=== PATIENT | male | born 1955 | race Caucasian/White ===

== ENCOUNTER 2020-08-30 11:53 | Emergency (ER) | payer MEDICARE, SELFPAY ==
--- NOTE | 2020-08-30 12:00 | DI.RAD_ITS ---
EXAM: XR CHEST 2V PA LATERAL CLINICAL HISTORY: High blood pressure. TECHNIQUE: 2D digital imaging was performed. COMPARISON: No exams were available for comparison FINDINGS: Heart size is normal. The mediastinum is not widened. Lungs are clear. No infiltrates nor pleural effusions. Hyperinflation noted. IMPRESSION: Hyperinflation. No acute pulmonary findings. DATA REPOSITORY: RADIATION DOSE DELIVERED:
--- NOTE | 2020-08-30 12:00 | RT.EKG_ITS ---
APPROVED REPORT Exam: Resting ECG Patient Location: E HR:64 bpm ECG Measurements Heart Rate 64 AXIS HI 153 P 81 QRSd 96 QRS 77 QT 459 T 30 QTc 452 Conclusion Sinus bradycardia..No st elevation. Nonspecific st changes inferior
[2020-08-30 12:06] VITALS: BP 215/90; PULSE 67; RESP 20; TEMP 37; O2SAT 98
--- NOTE | 2020-08-30 12:09 | W.ED.GENAD ---
Discharge Plan Disposition Patient Disposition: HOME Condition: Stable Discharge Details Clinical Impression: Temporary high blood pressure Primary Care Provider: Unknown,Unknown ED Provider: Katherine Jarrett Home Meds and New Rx's Prescriptions: New lisinopril 10 mg tablet 10 mg PO DAILY Qty: 30 RF: 0 Discharge Instructions Instructions: Hypertension (ED) Additional Instructions: Follow up with primary care provider in 3-5 days. Return to ED sooner if any worsening or concerns. Increase oral fluids. Take blood pressure medication once daily in the morning as directed. Check your blood pressure at same time each day if possible. Return with any chest pain, blurry vision, headache, numbness tingling or any concerns. Keep your primary care appointment as previously scheduled this week. Discharge Data Discharge Date/Time-TO BE ENTERED AT DEPARTURE: 08/30/20 14:45 Medical Decision Making 65-year-old male presents to the ED with chief complaint of high blood pressure which he noticed yesterday. He has not seen a doctor in approximately 20 years has no known past medical history. He does report intermittent left arm tingling, no numbness positive [id number]. Patient denies any headache, blurry vision, chest pain or shortness of breath at this time. He denies any lower extremity swelling. Patient is a daily smoker he does endorse marijuana. He denies alcohol use. 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 No complaints of urinary involvement. At this time work-up ordered including CBC, CMP, serial troponins chest x-ray EKG was reviewed by Dr. Estela RODRIGUEZ ER attending, questionable ST depression in 2 3 aVF inferior leads. No old EKG available for review. Blood pressure is now decreased to 155/89 patient remains alert and oriented. We will continue to monitor labs are largely within normal limits. Initial troponin is negative. EXAM: XR CHEST 2V PA LATERAL CLINICAL HISTORY: High blood pressure. TECHNIQUE: 2D digital imaging was performed. COMPARISON: No exams were available for comparison FINDINGS: Heart size is normal. The mediastinum is not widened. Lungs are clear. No infiltrates nor pleural effusions. Hyperinflation noted. IMPRESSION: Hyperinflation. No acute pulmonary findings. Will give Lisinopril 10 mg here, and will give prescription for low dose Lisinopril, will close follow up. Patient states that he has an upcoming appointment this week with Monse Givens. I did attempt to call his son Desmond no answer. Patient's blood pressure remained stable throughout the remainder of his stay at this time his blood pressure is 177/79 which is still elevated but improved. He continues to have no chest pain no headache or any other complaints. HPI General Mode of arrival: ambulatory. Date/Time Provider Initiated Documentation: 08/30/20 11:54. Limitations to Documentation: no limitations. Information obtained by: patient. HPI Narrative: 65-year-old male presents to the ED with chief complaint of high blood pressure which he noticed yesterday. He has not seen a doctor in approximately 20 years has no known past medical history. He does report intermittent left arm tingling, no numbness positive [id number]. Patient denies any headache, blurry vision, chest pain or shortness of breath at this time. He denies any lower extremity swelling. Patient is a daily smoker he does endorse marijuana. He denies alcohol use. 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 No complaints of urinary involvement. Related Data Home Medications Medication Instructions Recorded Confirmed lisinopril 10 mg PO DAILY #30 tab 08/30/20 Previous Rx's Medication Instructions Recorded lisinopril 10 mg PO DAILY #30 tab 08/30/20 Allergies Allergy/AdvReac Type Severity Reaction Status Date / Time No Known Allergies Allergy Unverified 08/30/20 13:03 General Stated Complaint: Chest/Rib TRINA: 3 Review of Systems Narrative: Constitutional: Negative for weight loss, alert and oriented, well groomed, normal body habitus, appears comfortable. HEENT: Denies trauma, headaches, blurry vision, nasal discharge, sore throat, trouble swallowing. Chest: Denies chest pain, palpitations, irregular rhythm, Respiratory: Denies Shortness of breath, cough, hemoptysis. GI: Denies abdominal pain, nausea, vomiting, diarrhea, constipation. : Denies dysuria, hematuria, flank pain, rectal bleeding. Neuro: Denies dizziness, blurry vision, weakness, syncope, headache or facial numbness. Hematologic: Denies easy bruising, intolerance to heat or cold, hair loss. [facility] Social History Smoking/Tobacco Use Status: Current every day Tobacco Type: cigarettes Smoking risk assessment performed?: Yes Alcohol Intake: former Substance use type: marijuana Do you feel safe at home: Yes Do you feel safe in your relationship?: Yes Exam Narrative Exam Narrative: Constitutional: Alert and oriented x3. Appears stated age. Normal body habitus. Head: Normocephalic, no trauma. Eyes: Pupils PERRLA, Red reflex noted, EOM's intact. Eyelids symmetrical without lesions, discharge, or swelling. ENT: Bilateral TM's WNL, External ear normal to inspection, no mastoid TTP, swelling, or erythema, Nasal turbinates WNL, no nasal discharge. Normal dentition, Posterior pharynx WNL, no exudate. Chest: RRR, Normal S1, S2, distal pulses intact. Patient is hypertensive upon initial exam at 215/90. Resp: Lungs clear to auscultation bilaterally, no wheezes, rales, or rhonchi. Musculoskeletal: Normal gait, 5/5 strength to all four extremities. Skin: No suspicious rashes or lesions. Capillary refill less than 2 sec. Neurologic: Cranial nerves II-XII intact. Alert and oriented x 3. DTR's intact. Hematologic/Lymphatic: No ecchymosis, no lymphadenopathy. Course Vital Signs Vital signs: Vital Signs Temperature 37 C 08/30/20 12:06 Pulse 67 08/30/20 12:06 Respiratory Rate 20 08/30/20 12:06 Blood Pressure 215/90 H 08/30/20 12:06 Pulse Oximetry 98 08/30/20 12:06 Temperature 37 C 08/30/20 12:06 Pulse 67 08/30/20 12:06 Respiratory Rate 20 08/30/20 12:06 Blood Pressure 215/90 H 08/30/20 12:06 Pulse Oximetry 98 08/30/20 12:06 Oxygen Delivery Method Room Air 08/30/20 12:06 Oxygen Flow Rate 0 08/30/20 12:06 Pain Level 0 08/30/20 12:06
[2020-08-30 12:36] LABS: Abs Immature Grans 0.01 10^3/uL (0.0-0.06); Absolute Basophil Count 0.07 10^3/uL (0.0-0.2); Absolute Eosinophil Count 0.06 10^3/uL (0.0-0.7); Absolute Lymphocyte Count 2.29 10^3/uL (1.2-3.4); Absolute Monocyte Count 0.49 10^3/uL (0.1-0.8); Absolute Neutrophil Count 3.25 10^3/uL (1.2-6.7); Basophils % 1.1; HCT 44.7 % (40.0-50.0); HGB 15.2 g/dL (13.5-17.5); Immature Grans % 0.2; Lymphocytes % 37.1; MCH 30.2 pg (27.0-33.0); MCV 88.9 fL (80-95); MPV 12.5 fL (8.0-11.0); Monocytes % 7.9; Neutrophils % 52.7; Nucleated RBC 0 %; Platelet Count 214 10^3/uL (130-400); RBC 5.03 10^6/uL (4.36-5.78); RDW 12.5 % (11.8-14.1); WBC 6.17 10^3/uL (4.4-10.8)
[2020-08-30 12:53] LABS: ALT 141 U/L (16-63); AST 86 U/L (15-37); Albumin 3.9 g/dL (3.4-5.0); Alkaline Phosphatase 89 U/L (46-116); Anion Gap 8.2 mmol/L (3-11); BUN 15 mg/dL (7-18); Bilirubin, Total 0.6 mg/dL (0.2-1.0); CO2 26.8 mmol/L (21.0-32.0); CREATININE 0.86 mg/dL (0.70-1.30); Calcium 9.1 mg/dL (8.5-10.1); Chloride 103 mmol/L (98-107); Glucose 108 mg/dL (74-106); Magnesium 1.8 mg/dL (1.8-2.4); Potassium 3.8 mmol/L (3.5-5.1); Sodium 138 mmol/L (136-145); Total Protein 9.5 g/dL (6.4-8.2); Troponin I < 0.05 ng/mL (<0.06)
[2020-08-30 13:02] VITALS: BP 155/89; PULSE 66; RESP 20; O2SAT 97
[2020-08-30 13:18] LABS: Bilirubin Negative (Negative); Blood Negative (Negative); Clarity Clear (Clear); Glucose Negative (Negative); Ketones Negative (Negative); Leukocyte Esterase Negative (Negative); Nitrite Negative (Negative); Specific Gravity >= 1.030 (1.005-1.025); Urobilinogen 0.2 EU/dL (Up TO 0.2); pH 5.5 (5-8)
[2020-08-30 13:47] VITALS: BP 161/91; PULSE 65; RESP 20; O2SAT 97
[2020-08-30] MEDS: Lisinopril 10 MG TAB PO (13:51)
== END 2020-08-30 14:45 | disposition home or self-care (01) ==
PROVIDERS: Emergency Provider Registered Nurse Emergency
DX: R03.0 Elevated blood-pressure reading, without diagnosis of hypertension (principal)
CPT/HCPCS: 36415; 80053; 93005; 99285; 71046; 81003; 83735; 84484; 85025; 93010; 99284

== ENCOUNTER 2020-10-24 01:50 | Outpatient (CLI) | payer MEDICARE, SELFPAY ==
--- NOTE | 2020-10-24 06:30 | DI.US_ITS ---
EXAM: US AAA SCREENING CLINICAL HISTORY: Male, +Nicotine use,SCREENING FOR AAA,F17.200,Z13.6 COMPARISON: No exams were available for comparison FINDINGS: Abdominal Aorta: Proximal: 2.9 x 2.9 cm Mid: 1.8 x 2.1 cm Distal: 1.7 x 2.5 cm Iliac's: Right: 0.9 x 1.0 cm Left: 0.9 x 0.9 cm Atherosclerosis is present. IMPRESSION: No evidence of abdominal aortic aneurysm. DATA REPOSITORY:
== END 2020-10-24 02:10 ==
PROVIDERS: PCP Nurse Practitioner Adult Health; Visit Provider Nurse Practitioner Adult Health
DX: Z13.6 Encounter for screening for cardiovascular disorders (principal); F17.210 Nicotine dependence, cigarettes, uncomplicated; Z12.12 Encounter for screening for malignant neoplasm of rectum; J43.8 Other emphysema; R91.8 Other nonspecific abnormal finding of lung field
CPT/HCPCS: 71271; 76706

== ENCOUNTER 2020-10-24 01:51 | Outpatient (CLI) | payer MEDICARE, SELFPAY ==
--- NOTE | 2020-10-24 06:30 | DI.CTLCSR_ITS ---
EXAM: CT CHEST LUNG CANCER SCREEN CLINICAL HISTORY: Screening for lung cancer,CURRENT SMOKER, F17.210 TECHNIQUE: Imaging Protocol: Axial computed tomography images with coronal and sagittal reformatted images were created and reviewed COMPARISON: CR XR CHEST 2V PA LATERAL from 08/30/2020 FINDINGS: Tracheobronchial tree: Patent where visualized. Pulmonary parenchyma: No consolidation or dominant measurable mass. Moderate centrilobular pulmonary emphysema is present. Scarring and/or atelectasis is seen in the dependent portions of the lungs. Lung Nodules: None. Mediastinum and Mary: No dominant adenopathy or fluid collection. Pleura: No effusion or pneumothorax. Heart: The heart is not dilated. Coronary artery calcification and/or stents are noted. Very small p ericardial effusion or pericardial thickening is seen. Aorta: Thoracic aorta non-dilated.Atherosclerosis. Upper abdomen: Unremarkable. Soft Tissues: Unremarkable. Bones: Within normal limits. IMPRESSION: 1. No pulmonary nodules. 2. Moderate centrilobular pulmonary emphysema. Lung RADS Cat 1 - Negative: No nodules and definitely benign nodules Lung-RADS 1.0 CATEGORIES: Category 0 - Prior chest CT exam(s) being located for comparison. Category 1 - Annual screening in 12 months. No nodules or definitely benign nodules. Category 2 - Annual screening in 12 months. Benign appearance. Nodules with low likelihood of becomin g active cancer. Category 3 - 6-month follow-up. Probably benign. Short-term follow-up suggested. Nodules with low lik elihood of becoming active cancer. Category 4A - 3-month follow-up and CT/PET if >8 mm in size. Suspicious finding. Findings which requi re additional testing. Category 4B - Findings which require additional testing and tissue sampling. Suspicious finding. Modifier S- Potentially clinically significant finding. (Non lung cancer) RADIATION DOSE DELIVERED: 88.93mGy.cm Total DLP 88.93mGy.cm Total DLP 1.84mGy CTDIvol DATA REPOSITORY: All CT scans at this facility are submitted to the National Radiology Data Registry (NRDR) Dose Index Registry (DIR) with the [employer] (A[employer]). RADIATION OPTIMIZATION: All CT scans at this facility use at least one of these dose optimization te chniques: automated exposure control; mA and/or kV adjustment per patient size (includes targeted exa ms where dose is matched to clinical indication); or iterative reconstruction.
== END 2020-10-24 02:11 ==
PROVIDERS: PCP Nurse Practitioner Adult Health; Visit Provider Nurse Practitioner
DX: Z12.2 Encounter for screening for malignant neoplasm of respiratory organs (principal); F17.210 Nicotine dependence, cigarettes, uncomplicated; J43.8 Other emphysema; R91.8 Other nonspecific abnormal finding of lung field
CPT/HCPCS: 71271

== ENCOUNTER 2022-03-16 09:55 | Outpatient (CLI) | payer MEDICARE, MEDICAID, SELFPAY ==
--- NOTE | 2022-03-16 09:45 | RT.EKG_ITS ---
APPROVED REPORT Exam: Resting ECG Reason for Exam: r/o Atrial Fibrillation Patient Location: O HR:63 bpm ECG Measurements Heart Rate 63 AXIS MT 163 P 79 QRSd 120 QRS 77 QT 468 T -37 QTc 452 Conclusion Sinus bradycardia...rate< 60 Premature atrial contractions
== END 2022-03-16 09:56 | disposition home or self-care (01) ==
LOC: DI.KIM 09:57
PROVIDERS: PCP Nurse Practitioner Adult Health; Visit Provider Nurse Practitioner Adult Health
DX: R94.31 Abnormal electrocardiogram [ECG] [EKG]; R00.1 Bradycardia, unspecified
CPT/HCPCS: 93010

== ENCOUNTER 2022-03-26 01:43 | Outpatient (CLI) | payer MEDICARE, SELFPAY ==
[2022-03-26 09:20] LABS: ALT 134 U/L (16-63); AST 89 U/L (15-37); Albumin 3.5 g/dL (3.4-5.0); Alkaline Phosphatase 76 U/L (46-116); Anion Gap 8.1 mmol/L (3-11); BUN 17 mg/dL (7-18); Bilirubin, Total 0.4 mg/dL (0.2-1.0); CO2 26.9 mmol/L (21.0-32.0); CREATININE 0.9 mg/dL (0.70-1.30); Calcium 8.9 mg/dL (8.5-10.1); Calculated LDL 99 mg/dL (<100); Chloride 105 mmol/L (98-107); Cholesterol 173 mg/dL (<200); Folate 15.1 ng/mL (8.6-20.0); Glucose 110 mg/dL (74-106); HDL Cholesterol 56 mg/dL (40-60); Potassium 3.7 mmol/L (3.5-5.1); Sodium 140 mmol/L (136-145); Total Protein 8.5 g/dL (6.4-8.2); Triglyceride 93 mg/dL (<150); Vitamin B12 536 pg/mL (193-986)
== END 2022-03-26 01:44 | disposition home or self-care (01) ==
LOC: LBO 01:43
PROVIDERS: PCP Nurse Practitioner Adult Health; Visit Provider Nurse Practitioner Adult Health
DX: I10 Essential (primary) hypertension (principal); F17.210 Nicotine dependence, cigarettes, uncomplicated; R74.01 Elevation of levels of liver transaminase levels; Z13.220 Encounter for screening for lipoid disorders; Z79.899 Other long term (current) drug therapy
CPT/HCPCS: 36415; 80053; 80061; 82607; 82746

== ENCOUNTER → 2022-04-01 01:19 | Outpatient (CLI) | payer MEDICARE, SELFPAY ==
--- NOTE | 2022-04-01 07:00 | DI.CTLCSR_ITS ---
Exam(s) CT CHEST LUNG CANCER SCREEN EXAM: CT CHEST LUNG CANCER SCREEN CLINICAL HISTORY: Screening for lung cancer,current smoker,f17.210 TECHNIQUE: CT examination of the chest was performed utilizing low-dose lung cancer screening protoc ol. COMPARISON: CT CT CHEST LUNG CANCER SCREEN from 10/24/2020 FINDINGS: Images obtained through the upper abdomen show unremarkable appearance of visualized portions of the liver and spleen. Visualized portions of the pancreas, adrenals, and kidneys are unremarkable. Note is made of coronary artery calcification. There is no mediastinal or hilar adenopathy. Mediastinal vascular structures appear intact by noncon trast criteria. Tracheobronchial tree appears intact. No pleural effusion or pleural-based mass. There are moderate to severe central lobular pulmonary emphysematous changes. The lungs are clear with no significant intrapulmonary nodule identified. IMPRESSION: Lung RADS Cat 1 - Negative: No nodules and definitely benign nodules Continue annual screening with LDCT in 12 months. Lung-RADS 1.0 CATEGORIES: Category 0 - Prior chest CT exam(s) being located for comparison. Category 1 - Annual screening in 12 months. No nodules or definitely benign nodules. Category 2 - Annual screening in 12 months. Benign appearance. Nodules with low likelihood of becomin g active cancer. Category 3 - 6-month follow-up. Probably benign. Short-term follow-up suggested. Nodules with low lik elihood of becoming active cancer. Category 4A - 3-month follow-up and CT/PET if >8 mm in size. Suspicious finding. Findings which requi re additional testing. Category 4B - Findings which require additional testing and tissue sampling. Suspicious finding. Category 4X - Category 3 or 4 nodules with additional features or imaging findings that increases the suspicion of malignancy. Modifier S- Potentially clinically significant finding. (Non lung cancer) RADIATION DOSE DELIVERED: 80.81mGy.cm Total DLP 1.84mGy CTDIvol 80.81mGy.cm Total DLP !Error CTDIvol DATA REPOSITORY: All CT scans at this facility are submitted to the National Radiology Data Registry (NRDR) Dose Index Registry (DIR) with the [employer] (ACR). RADIATION OPTIMIZATION: All CT scans at this facility use at least one of these dose optimization te chniques: automated exposure control; mA and/or kV adjustment per patient size (includes targeted exa ms where dose is matched to clinical indication); or iterative reconstruction.
== END ==
PROVIDERS: PCP Nurse Practitioner Adult Health; Visit Provider Nurse Practitioner Adult Health
DX: F17.210 Nicotine dependence, cigarettes, uncomplicated (principal); Z12.2 Encounter for screening for malignant neoplasm of respiratory organs
CPT/HCPCS: 71271

== ENCOUNTER 2023-05-03 10:11 | Outpatient (REF) | payer MEDICARE, MEDICAID, SELFPAY ==
[2023-05-03 22:17] LABS: Anion Gap 10.5 mmol/L (3-11); BUN 20 mg/dL (7-18); CO2 24.5 mmol/L (21.0-32.0); CREATININE 0.9 mg/dL (0.70-1.30); Calcium 9.7 mg/dL (8.5-10.1); Chloride 101 mmol/L (98-107); Estimated GFR 91.88 (mL/min/1.73m2); Glucose 124 mg/dL (74-106); Sodium 136 mmol/L (136-145)
== END 2023-05-03 10:12 | disposition home or self-care (01) ==
LOC: LBO 10:11
PROVIDERS: PCP Nurse Practitioner Adult Health; Visit Provider Nurse Practitioner Adult Health
DX: I10 Essential (primary) hypertension (principal)
CPT/HCPCS: 80048

== ENCOUNTER 2024-10-19 11:46 | Outpatient (REF) | payer MEDICARE, MEDICAID, SELFPAY ==
[2024-10-19 15:34] LABS: ALT 131 U/L (16-63); AST 102 U/L (15-37); Albumin 3.5 g/dL (3.4-5.0); Alkaline Phosphatase 104 U/L (46-116); Anion Gap 5.9 mmol/L (3-11); BUN 12 mg/dL (7-18); Bilirubin, Total 0.5 mg/dL (0.2-1.0); CO2 28.1 mmol/L (21.0-32.0); CREATININE 0.8 mg/dL (0.70-1.30); Calcium 9.3 mg/dL (8.5-10.1); Chloride 105 mmol/L (98-107); Estimated GFR 94.62 (mL/min/1.73m2); Glucose 97 mg/dL (74-106); Potassium 4.4 mmol/L (3.5-5.1); Sodium 139 mmol/L (136-145); Total Protein 8.7 g/dL (6.4-8.2)
== END 2024-10-19 11:47 | disposition home or self-care (01) ==
LOC: LBN 11:46
PROVIDERS: PCP Nurse Practitioner Adult Health; Visit Provider Nurse Practitioner Adult Health
DX: I10 Essential (primary) hypertension (principal); R74.01 Elevation of levels of liver transaminase levels; J43.2 Centrilobular emphysema
CPT/HCPCS: 80053

== ENCOUNTER 2025-04-23 10:28 | Inpatient (IN) | payer MEDICARE, MEDICAID, SELFPAY ==
[2025-04-23] VITALS (16 sets, daily range): BP systolic 133–164; BP diastolic 65–94; PULSE 71–93; RESP 16–18; TEMP 36.4–36.9; O2SAT 95–98
--- NOTE | 2025-04-23 10:37 | W.ED.GENAD ---
Discharge Plan Disposition Patient Disposition: Admit to [facility] Discharge Details Clinical Impression: Liver masses, Elevated INR, Portal vein thrombosis Admit Date/Time: 04/23/25 14:56 Admit Provider: Shivam Martines Attending Provider: Shivam Martines Primary Care Provider: Monse Jacome ED Provider: Nikita Ruby [facility] General Date/Time Provider Initiated Documentation: 04/23/25 10:37. HPI Narrative: MDM This is a cachectic-appearing 70-year-old male with right upper quadrant mass for which patient will undergo CT chest abdomen pelvis with IV contrast. No rash to abdomen to suggest zoster. Patient has not had a colonoscopy so colon cancer is certainly on differential. No obvious hydronephrosis so my suspicion for ureteral lithiasis is low. Patient has been passing gas and I suspicion is low for small bowel obstruction. Will obtain LFTs which have been elevated in the past. Will also obtain INR and PTT to assess synthetic function. No shortness of breath to suggest PE. Similarly in the absence of shortness of breath I am not suspicious for acute heart failure. 11:37 AM Urinalysis nitrite negative. Small bilirubinemia. CBC lacks anemia thrombocytopenia leukocytosis. 11:55 AM Elevated INR. PTT within normal limits. 1 PM I met with the patient. He had a large hepatic mass concerning for neoplasm. I explained these findings to the patient and his . Given his pain and decreased ability to tolerate p.o. and inability to sleep for the past several days I feel that it is not unreasonable to hospitalize him. Patient was also found to have a portal vein thrombus for which I treated him with just over 1 mg/kg enoxaparin. I was in touch with Dr. Martines from hospitalist team who graciously agreed to accept the patient for hospitalization. I sent a message to his PCP to update her concerning the patient's hospitalization. HPI This is a patient with a history of COPD presenting with right-sided pain. The patient reports experiencing right-sided pain for the past 3 weeks, accompanied by a sensation of bloating. He has not had similar symptoms before. He reports no nausea or vomiting but mentions a decrease in appetite due to the bloating. His diet has been limited to tea this morning and chicken soup with one piece of bread yesterday. He also reports frequent burping over the past week. He has not taken any recent antibiotics and has no history of kidney stones. He reports no burning sensation during urination, chest pain, or difficulty breathing. His breathing is currently stable despite his COPD. He has not undergone any abdominal surgeries or colonoscopies in the past. 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 He reports he has had unintentional 15 pound weight loss over the past 2 years. Denies night sweats. Had some tea this morning. He smokes cigarettes. Exam General: Cachectic-appearing in no acute distress speaking in complete sentences. Head: Normocephalic, atraumatic. Eye: Extraocular eye movements intact. No conjunctival injection. No scleral icterus. Ear, nose, mouth, throat: Grossly normal inspection. Normal voice, handling secretions normally. Neck: Trachea midline. Cardiovascular: Well-perfused distal extremities. Respiratory: Nonlabored respiration. Clear lungs with decreased breath sounds bilaterally. Gastrointestinal: Distended abdomen with firm large right upper quadrant mass. Musculoskeletal: No edema. Moving all 4 extremities spontaneously. Skin: Normal for age and race, grossly normal temperature and turgor. No acute rash. Neurologic: Alert and appropriate, no apparent acute deficits. Related Data Home Medications ?Medication ?Instructions ?Recorded ?Confirmed cetirizine 10 mg tablet (Zyrtec) 10 mg PO DAILY PRN 02/11/23 04/23/25 albuterol sulfate 90 mcg/actuation See Rx Instructions .Route 07/12/24 04/23/25 aerosol inhaler .COMPLEX #25.5 grams ipratropium 0.5 mg-albuterol 3 mg 3 ml inhalation QID PRN wheezing 10/19/24 04/23/25 (2.5 mg base)/3 mL nebulization #180 mL soln lisinopril 20 mg tablet 20 mg PO DAILY #90 tabs 10/19/24 04/23/25 nebulizers (Aeroneb Go Nebulizer) #1 ea 10/19/24 04/23/25 umeclidinium 62.5 mcg/actuation 1 inh inhalation DAILY #90 ea 01/29/25 04/23/25 blister powder for inhalation (Incruse Ellipta) fluticasone propionate 230 See Rx Instructions .Route 02/12/25 04/23/25 mcg-salmeterol 21 mcg/actuation .COMPLEX #3 units HFA inhaler (Advair HFA) Previous Rx's ?Medication ?Instructions ?Recorded albuterol sulfate 90 mcg/actuation See Rx Instructions .Route 07/12/24 aerosol inhaler .COMPLEX #25.5 grams ipratropium 0.5 mg-albuterol 3 mg 3 ml inhalation QID PRN wheezing 10/19/24 (2.5 mg base)/3 mL nebulization #180 mL soln lisinopril 20 mg tablet 20 mg PO DAILY #90 tabs 10/19/24 nebulizers (Aeroneb Go Nebulizer) #1 ea 10/19/24 umeclidinium 62.5 mcg/actuation 1 inh inhalation DAILY #90 ea 01/29/25 blister powder for inhalation (Incruse Ellipta) fluticasone propionate 230 See Rx Instructions .Route 02/12/25 mcg-salmeterol 21 mcg/actuation .COMPLEX #3 units HFA inhaler (Advair HFA) Allergies Allergy/AdvReac Type Severity Reaction Status Date / Time No Known Allergies Allergy Verified 04/23/25 10:34 General Stated Complaint: GenMedical TRINA: 3 Course Vital Signs Vital signs: Vital Signs Temperature 36.9 C 04/23/25 10:31 Pulse 91 H 04/23/25 10:31 Respiratory Rate 18 04/23/25 10:31 Blood Pressure 137/79 04/23/25 10:31 Pulse Oximetry 97 04/23/25 10:31 Temperature 36.9 C 04/23/25 10:35 Temperature Source Oral 04/23/25 10:35 Pulse 91 H 04/23/25 10:35 Respiratory Rate 18 04/23/25 10:35 Blood Pressure 137/79 04/23/25 10:35 Pulse Oximetry 97 04/23/25 10:35 Medical Decision Making Quality:SDOH Health Related Social Needs: Health related social needs details N/A PFSH All Active Problems (Updated 04/23/25 @ 15:06 by Letha Borja APRN) Abdominal pain (Acute) Portal vein thrombosis (Acute) Elevated INR (Acute) Liver masses (Acute) Emphysema, unspecified (Chronic) Seen on low-dose CT screen Nicotine dependence, cigarettes, uncomplicated (Chronic) Elevated liver transaminase level (Chronic ~2020) Essential (primary) hypertension (Chronic) Goal ~140/90; once achieved--> goal 130/80 Dx'ed 2020-->Lisinopril RX Medical History PAC (premature atrial contraction) (~03/2022) HR irregular--ECG confirmed PACs (frequent) Surgical History No significant past surgical history Family History Mother , 89yo multi-organ failure (pulm HTN, heart, kidney) Heart disease Hypertension Father , 76yo [place] cell cancer Sarahi cell cancer Brother Hypertension Social History Smoking/Tobacco Use Status: Current-Occasional Tobacco Type: cigarettes Tobacco: How many years used: 40 Quit status: considering quitting (Everyday he thinks about it.) Counseling given: provider counseling Smoking risk assessment performed?: Yes Alcohol Intake: former Year quit: 1986 Drug use: Current Sobriety Substance use type: marijuana Details: h/o cocaine use but not for 30 years Adopted: No Caregiver/Support person: No Foster care: No Household members: spouse and children Housing: house Number of Children: 3 number of grandchildren: 1 Communication Needs: None Education Level: high school Do you need help understanding health information?: Often current occupation: Retired Pets and animals: Yes (2 dogs, 1 cat) Pets and animals: dog(s) Sexually active: Yes Do you think of yourself as: straight/heterosexual Current gender identity: male What is your relationship status?: How often do you talk on the phone with friends or family?: once per week How often do you get together with friends or relatives?: once per week How often do you attend catholic or baptism services?: decline to answer Do you belong to any clubs or organized social groups?: no Panel score (0-1 are the most socially isolated patients): 1 What type of physical activity do you participate in: regular exercise and normal ROM and activity Duration: 15-30 minutes/day Frequency: daily Adnnielle/Temple: None Special dannielle needs: No Seatbelt use: always Helmet use: No (No reason) Drive intox or ride w/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 Fire extinguisher in home: Yes Do you feel safe at home: Yes Do you feel safe in your relationship?: Yes Victim of physical abuse: No Victim of emotional abuse: No Victim of sexual abuse: No Would you like helpful sources: No Additional Social history: to long-term with 3 children together: Desmond Weeks Maggie-Jean; originally from [place] POC Exam (ED) Limited Retroperitoneal(Renal)Exam DATE OF EXAM: 04/23/25 TIME OF EXAM: 11:14 PROVIDER THAT PERFORMED THE STUDY: Nikita Ruby IS THIS A REPEAT EXAM DURING THIS ENCOUNTER: No REASON FOR EXAM: Back pain/right side VISUALIZED STRUCTURES: Left kidney, Right kidney and Other (Bladder) structures: Bilateral kidneys bladder PERTINENT FINDINGS/IMPRESSION: no hydronephrosis present DIFFERENTIAL DIAGNOSES: No obvious UVJ stone. No hydronephrosis bilaterally. Trace free fluid. Large echogenic seemingly hepatic mass seems Exam complete
[2025-04-23 10:59] LABS: Glucose Negative (Negative)
--- NOTE | 2025-04-23 11:30 | DI.CT_ITS ---
Exam(s) CT CHEST/ABD/PEL W EXAM: CT CHEST/ABD/PEL W CLINICAL HISTORY: Right flank mass. TECHNIQUE: Imaging Protocol: Axial computed tomography images with coronal and sagittal reformatted images were created and reviewed CONTRAST MATERIAL: Intravenous: Omnipaque 350 Contrast volume:95 Oral: None COMPARISON: CT CT CHEST LUNG CANCER SCREEN from 04/01/2022 FINDINGS: CHEST: LUNGS: There are now multiple soft tissue density non cavitated and noncalcified metastatic nodules throughout both lung garg. Largest of these measures approximately 3.3 x 1.9 cm. There are no associated pleural effusions . No findings in trachea and mainstem bronchi. MEDIASTINUM: There is no hilar nor mediastinal adenopathy. Visualized thyroid unremarkable. CARDIAC: Heart size is normal. There is no pericardial effusion.Caliber of the thoracic aorta is upper normal. No dissection. OSSEOUS: No significant osseous lesions.There are no fractures. ABDOMEN: There is a small amount of perihepatic ascites. LIVER: There is a large neoplastic appearing mass occupying most of the right hepatic lobe and caudate lobe. There is relative sparing of the left hepatic lobe GALLBLADDER/BILIARY: Gallbladder is not visualized as a separate structure and is either surgically absent or involved by the mass. CBD diameter is upper normal.. PANCREAS: Pancreas head and neck are displaced to the left side by the large liver mass. Pancreatic duct diameter is slightly increased. There does not appear to be a distinct mass within the pancreas but there is a mass interposed between the pancreatic tail and anterior aspect of the kidney which has similar appearance to the large liver mass SPLEEN: Spleen is not enlarged. There are no intrasplenic lesions. Splenic vein is patent. There is intraluminal thrombus within the main portal vein which measures 2.5 cm length by 1.4 cm. Right hepatic portal veins are not identified and most probably compressed by the large hepatic neoplasm. ADRENALS: There are no significant adrenal masses. KIDNEYS: There few nonobstructive small calculi in left kidney. No hydronephrosis. No other significant focal renal findings.. ABDOMINAL AORTA: Calcified but not enlarged. Common iliac arteries also calcified but not enlarged. LYMPH NODES: Retroperitoneal adenopathy evident ABDOMINAL WALL: No evidence of significant anterior abdominal wall nor inguinal hernia. GI: There appear to be mesenteric metastatic disease. Few dilated small bowel loops are noted measuring up to 2.8 cm. There is no distinct transition point PELVIS: LYMPH NODES: There is no intrapelvic nor inguinal adenopathy. GI: No obvious appendicitis.No evidence of sigmoid diverticulitis. URINARY BLADDER: No calculi nor masses evident REPRODUCTIVE: Prostate size normal. Seminal vesicles unremarkable. OSSEOUS: No lytic nor blastic osseous lesions identified. Chronic advanced L5- S1 disc space narrowing is noted. IMPRESSION: 1. There is a large ominous neoplastic appearing mass occupying a large part of the right hepatic lobe. There is thrombosis of the main portal vein. Gallbladder is not visualized as a separate structure and is probably incorporated within the mass. There is mild amount of ascites in the abdomen and pelvis. There are also metastatic mesenteric lesions, the largest interposed between the pancreatic tail and left kidney. Spleen is not enlarged. 2. There are multiple metastatic lesions throughout both lungs. There are no pleural effusions. 3. There are few small nonobstructive renal calculi. 4. No osseous lesions nor fractures identified. Report called by myself to ER physician on 04/23/2025 at 12:35 p.m. RADIATION DOSE DELIVERED: Total DLP DATA REPOSITORY: All CT scans at this facility are submitted to the National Radiology Data Registry (NRDR) Dose Index Registry (DIR) with the [employer] (ACR). RADIATION OPTIMIZATION: All CT scans at this facility use at least one of these dose optimization techniques: automated exposure control; mA and/or kV adjustment per patient size (includes targeted exams where dose is matched to clinical indication); or iterative reconstruction.
[2025-04-23 11:32] LABS: RBC Negative HPF (0-2); WBC 0-2 HPF (0-5)
[2025-04-23 11:33] LABS: C & S Indicated? No
[2025-04-23 11:36] LABS: Abs Immature Grans 0.02 10^3/uL (0.0-0.06); HCT 48.0 % (40.0-50.0); HGB 15.3 g/dL (13.5-17.5); Immature Grans % 0.3 %; MCH 27.3 pg (27.0-33.0); MCHC 31.9 % (32.0-36.0); MCV 86 fL (80-95); MPV 11.1 fL (8.0-11.0); Platelet Count 376 10^3/uL (130-400); RBC 5.60 10^6/uL (4.36-5.78); RDW 14.6 % (11.8-14.1); RDW-SD 45.3 fL; WBC 7.34 10^3/uL (4.4-10.8)
[2025-04-23 11:42] LABS: INR 1.4 (0.9-1.1); PTT Activated 27.6 sec (20.6-30.2); Prothrombin Time 13.6 sec (9.1-11.1)
[2025-04-23] MEDS: Omnipaque 350 MG/ML 500 ML BTL-Imaging package IJ (12:07)
[2025-04-23] MEDS: Normal Saline - Diluent 50 ML VIAL IJ (12:08)
[2025-04-23] MEDS: Enoxaparin 60 MG/0.6 ML SYR SC (13:08)
[2025-04-23] MEDS: MORPHine 4 MG/ML SYR IVP (13:08)
--- NOTE | 2025-04-23 13:49 | W.PM.HP.N ---
Date of service: 04/23/25 Time of Service: 13:49 Assessment and Plan Assessment and plan (1) Portal vein thrombosis: Status: Acute Assessment and plan: As per imaging On LMWH 1mg/kg Q 12 H Labs in AM (2) Liver masses: Status: Acute Assessment and plan: As per imaging with suspected multiple mets sites - lungs, mesentery Outpt oncology referral/ hepatology Palliative care consult (3) Abdominal pain: Status: Acute Assessment and plan: Most likely d/t above process PRN IV hydromorphone Consider PRN ondansetron if nauseous (4) Elevated INR: Status: Acute Assessment and plan: With normal PTT Trend coags (5) Emphysema, unspecified: Status: Chronic Assessment and plan: On home med regimen (6) Nicotine dependence, cigarettes, uncomplicated: Status: Chronic Assessment and plan: Consider NRT PRN if the patient is requesting (7) Essential (primary) hypertension: Status: Chronic Assessment and plan: Was on lisinopril at home but d/c in 2020 Will continue to monitor Discussed with Dr Martines History of Present Illness History of Present Illness Chief Complaint: Abdominal pain, nausea vomiting Narrative: This 68 years old male patient with past medical history of COPD, remote EtOH dependence, nicotine dependence, hypertension presented to the ED with right-sided abdominal pain starting 3 weeks ago with sensation of bloating and decreased appetite and eructation. On examination patient had right upper quadrant mass. A CT scan of the chest abdomen pelvis showed large ominous neoplastic appearing mass occupying a large part of the right hepatic lobe; thrombosis of the main portal vein,multiple metastatic lesions throughout both lungs, metastatic mesenteric lesions mild amount of ascites in the abdomen and pelvis. Workup in the ED was positive for showing elevated INR with PTT within normal limits, minimally elevated bilirubin. Treatment initiated in the ED with LMWH, morphine with moderate result. The patient was admitted to the medical floor for hepatic mass, portal thrombosisand pain management. Denies chest pain, increased SOB, nausea, vomiting, diarrhea, constipation or dysuria. Endorsed chills, RUQ, R flank, R back pain, bloating, edema to feet. Full code status for now pending discussion with palliative care. Review of Systems All systems reviewed & are unremarkable except as noted in HPI and below PFSH All Active Problems (Updated 04/23/25 @ 15:06 by Letha Borja APRN) Abdominal pain (Acute) Portal vein thrombosis (Acute) Elevated INR (Acute) Liver masses (Acute) Emphysema, unspecified (Chronic) Seen on low-dose CT screen Nicotine dependence, cigarettes, uncomplicated (Chronic) Elevated liver transaminase level (Chronic ~2020) Essential (primary) hypertension (Chronic) Goal ~140/90; once achieved--> goal 130/80 Dx'ed 2020-->Lisinopril RX Medical History PAC (premature atrial contraction) (~03/2022) HR irregular--ECG confirmed PACs (frequent) Surgical History No significant past surgical history Family History Mother , 89yo multi-organ failure (pulm HTN, heart, kidney) Heart disease Hypertension Father , 76yo [place] cell cancer Sarahi cell cancer Brother Hypertension Social History Smoking/Tobacco Use Status: Current-Occasional Tobacco Type: cigarettes Tobacco: How many years used: 40 Quit status: considering quitting (Everyday he thinks about it.) Counseling given: provider counseling Smoking risk assessment performed?: Yes Alcohol Intake: former Year quit: 1986 Drug use: Current Sobriety Substance use type: marijuana Details: h/o cocaine use but not for 30 years Adopted: No Caregiver/Support person: No Foster care: No Household members: spouse and children Number of Children: 3 number of grandchildren: 1 Communication Needs: None Education Level: high school Do you need help understanding health information?: Often current occupation: Retired Pets and animals: Yes (2 dogs, 1 cat) Pets and animals: dog(s) Sexually active: Yes Do you think of yourself as: straight/heterosexual Current gender identity: male What is your relationship status?: How often do you talk on the phone with friends or family?: once per week How often do you get together with friends or relatives?: once per week How often do you attend gnosticism or sabianism services?: decline to answer Do you belong to any clubs or organized social groups?: no Panel score (0-1 are the most socially isolated patients): 1 What type of physical activity do you participate in: regular exercise and normal ROM and activity Duration: 15-30 minutes/day Frequency: daily Dannielle/Druze: None Special dannielle needs: No Seatbelt use: always Helmet use: No (No reason) Drive intox or ride w/intox pizza driver: No Fire extinguisher in home: Yes Do you feel safe at home: Yes Do you feel safe in your relationship?: Yes Victim of physical abuse: No Victim of emotional abuse: No Victim of sexual abuse: No Would you like helpful sources: No Additional Social history: to long-term with 3 children together: Desmond Weeks Maggie-Jean; originally from [place] Allergies and Home Medications Allergies Allergy/AdvReac Type Severity Reaction Status Date / Time No Known Allergies Allergy Verified 04/23/25 10:34 Home Medications ?Medication ?Instructions ?Recorded ?Confirmed ?Type cetirizine 10 mg tablet (Zyrtec) 10 mg PO DAILY PRN 02/11/23 04/23/25 History albuterol sulfate 90 mcg/actuation See Rx Instructions .Route 07/12/24 04/23/25 Rx aerosol inhaler .COMPLEX #25.5 grams ipratropium 0.5 mg-albuterol 3 mg 3 ml inhalation QID PRN wheezing 10/19/24 04/23/25 Rx (2.5 mg base)/3 mL nebulization #180 mL soln lisinopril 20 mg tablet 20 mg PO DAILY #90 tabs 10/19/24 04/23/25 Rx nebulizers (Aeroneb Go Nebulizer) #1 ea 10/19/24 04/23/25 Rx umeclidinium 62.5 mcg/actuation 1 inh inhalation DAILY #90 ea 01/29/25 04/23/25 Rx blister powder for inhalation (Incruse Ellipta) fluticasone propionate 230 See Rx Instructions .Route 02/12/25 04/23/25 Rx mcg-salmeterol 21 mcg/actuation .COMPLEX #3 units HFA inhaler (Advair HFA) Exam Narrative Exam Narrative: Cachectic appearing 70 yo male, w sharp abdominal pain bursts, otherwise no acute distress, alert and oriented, neurologically intact, unlabored breathing ,decreased bases, S1, S2 regular, PPPX4, Abd is round, semi-firm, RUQ tenderness, no CVA tenderness ,moves all 4 ext Results Labs 04/23/25 11:18 Labs: Laboratory Results - last 24 hr 04/23/25 04/23/25 10:48 11:18 WBC 7.34 RBC 5.60 Hgb 15.3 Hct 48.0 MCV 86 MCH 27.3 MCHC 31.9 L RDW 14.6 H Plt Count 376 MPV 11.1 H Immature Gran % 0.3 Neutrophils % 85.1 Lymphocytes % 7.4 Monocytes % 6.7 Eosinophils % 0.1 Basophils % 0.4 Nucleated RBC % 0.0 Absolute Neutrophils 6.25 Absolute Lymphocytes 0.54 L Absolute Monocytes 0.49 Absolute Eosinophils 0.01 Absolute Basophils 0.03 PT 13.6 H INR 1.4 H APTT 27.6 Urine Color Yellow Urine Clarity Clear Urine pH 5.5 Ur Specific [place] 1.025 Urine Protein 100 H Urine Ketones 15 H Urine Blood Negative Urine Nitrite Negative Urine Bilirubin Small H Urine Urobilinogen 1.0 H Ur Leukocyte Esterase Negative Urine RBC Negative Urine WBC 0-2 Ur Epithelial Cells Rare Urine Crystals Negative Urine Bacteria Few Urine Casts Negative Urine Mucus Moderate Urine Other Negative Ur Culture Indicated? No Urine Glucose Negative Last Vital Signs Temp 36.9 C 04/23/25 10:35 Pulse 91 H 04/23/25 10:35 Resp 18 04/23/25 10:35 BP 137/79 04/23/25 10:35 Pulse Ox 97 04/23/25 10:35 Time Spent Time spent with Patient: >75 minutes Time was spent: preparing to see the patient(eg.review tests), obtaining and/or reviewing separately otained hiistory, ordering medications,tests, procedures, referring, communicating with other health account executive healthcare, indepentently interpreting results, counseling the patient, care coordination and other
[2025-04-23 14:16] LABS: ALT 39 U/L (16-63); AST 283 U/L (15-37); Albumin 3.1 g/dL (3.4-5.0); Alkaline Phosphatase 207 U/L (46-116); Anion Gap 11.2 mmol/L (3-11); BUN 32 mg/dL (7-18); Bilirubin, Total 1.3 mg/dL (0.2-1.0); CO2 22.8 mmol/L (21.0-32.0); Calcium 9.2 mg/dL (8.5-10.1); Chloride 98 mmol/L (98-107); Estimated GFR 79.97 (mL/min/1.73m2); Glucose 100 mg/dL (74-106); Lipase 17 U/L (<78); Potassium 4.8 mmol/L (3.5-5.1); Sodium 132 mmol/L (136-145); Total Protein 8.6 g/dL (6.4-8.2)
--- NOTE | 2025-04-23 14:49 | W.PC.ACHO ---
Registration Status: REG ER Primary Language: Preferred Language: ED Information & Data Chief Complaint GenMedical 04/23/25 10:45 Triage Note Patient complaining of bilat 04/23/25 10:31 feet swelling, abd pain, right flank pain Medical / Surgical History (Last Reviewed 10/19/24 @ 12:26 by Monse Jacome NP) PAC (premature atrial contraction) (~03/2022) (Last Reviewed 10/19/24 @ 12:26 by Monse Jacome NP) No significant past surgical history Most Recent Vital Signs Temperature 36.9 C 04/23/25 10:35 Temperature Source Oral 04/23/25 10:35 Pulse 87 04/23/25 13:50 Respiratory Rate 18 04/23/25 10:35 Blood Pressure 139/90 04/23/25 13:46 Blood Pressure Mean 99 04/23/25 13:46 Pulse Oximetry 96 04/23/25 13:50 Allergies No Known Allergies Allergy (Verified 04/23/25 10:34) Precautions Isolation Standard precaution 04/23/25 10:36 Active Medications Generic Name Dose Route Start Last Admin Trade Name Tatum PRN Reason Stop Dose Admin Iohexol 500 ml 04/23/25 12:15 04/23/25 12:07 Omnipaque 350 Mg/Ml 500 Ml Btl-Imaging Package IJ 05/23/25 23:59 75 ml DIRECTED SVEN Administration Sodium Chloride 50 ml 04/23/25 12:15 04/23/25 12:08 Normal Saline - Diluent 50 Ml Vial IJ 50 ml DIRECTED SVEN Administration IV IV Catheter Type [Right Saline Lock Forearm] IV Catheter Gauge [Right 20 Forearm] Diet Orders Category Date Time Status DIET [Regular/Normal] [DIET] Nutrition 04/23/25 Dinner Active Diagnostics 04/23/25 04/23/25 Range/Units 11:18 10:48 WBC 7.34 (4.4-10.8) 10^3/uL RBC 5.60 (4.36-5.78) 10^6/uL Hgb 15.3 (13.5-17.5) g/dL Hct 48.0 (40.0-50.0) % MCV 86 (80-95) fL MCH 27.3 (27.0-33.0) pg MCHC 31.9 L (32.0-36.0) % RDW 14.6 H (11.8-14.1) % Plt Count 376 (130-400) 10^3/uL MPV 11.1 H (8.0-11.0) fL Immature Gran % 0.3 % Neutrophils % 85.1 % Lymphocytes % 7.4 % Monocytes % 6.7 % Eosinophils % 0.1 % Basophils % 0.4 % Nucleated RBC % 0.0 (0.0-0.3) % Absolute Neutrophils 6.25 (1.2-6.7) 10^3/uL Absolute Lymphocytes 0.54 L (1.2-3.4) 10^3/uL Absolute Monocytes 0.49 (0.1-0.8) 10^3/uL Absolute Eosinophils 0.01 (0.0-0.7) 10^3/uL Absolute Basophils 0.03 (0.0-0.2) 10^3/uL PT 13.6 H (9.1-11.1) sec INR 1.4 H (0.9-1.1) APTT 27.6 (20.6-30.2) sec Sodium 132 L (136-145) mmol/L Potassium 4.8 (3.5-5.1) mmol/L Chloride 98 (98-107) mmol/L Carbon Dioxide 22.8 (21.0-32.0) mmol/L Anion Gap 11.2 H (3-11) mmol/L BUN 32 H (7-18) mg/dL Creatinine 1.0 (0.70-1.30) mg/dL Est GFR (CKD-EPI 2020) 79.97 (mL/min/1.73m2) Glucose 100 (74-106) mg/dL Calcium 9.2 (8.5-10.1) mg/dL Total Bilirubin 1.3 H (0.2-1.0) mg/dL AST 283 H (15-37) U/L ALT 39 (16-63) U/L Alkaline Phosphatase 207 H (46-116) U/L Total Protein 8.6 H (6.4-8.2) g/dL Albumin 3.1 L (3.4-5.0) g/dL Lipase 17 (<78) U/L Urine Color Yellow (Yellow) Urine Clarity Clear (Clear) Urine pH 5.5 (5-8) Ur Specific [place] 1.025 (1.005-1.025) Urine Protein 100 H (Neg-Trace) mg/dL Urine Ketones 15 H (Negative) mg/dL Urine Blood Negative (Negative) Urine Nitrite Negative (Negative) Urine Bilirubin Small H (Negative) Urine Urobilinogen 1.0 H (Up to 0.2) mg/dL Ur Leukocyte Esterase Negative (Negative) Urine RBC Negative (0-2) HPF Urine WBC 0-2 (0-5) HPF Ur Epithelial Cells Rare (Negative) HPF Urine Crystals Negative (Negative) HPF Urine Bacteria Few (Negative) HPF Urine Casts Negative (Negative) LPF Urine Mucus Moderate (Negative) Urine Other Negative (Negative) Ur Culture Indicated? No Urine Glucose Negative (Negative) mg/dL Intake and Output - 24 Hour Total 04/23/25 10:28 thru 04/23/25 10:31 Weight 52.254 kg Falls Risk Assessment History of Falls No History 04/23/25 10:52 Contributing Factors No Factors 04/23/25 10:52 Ambulatory Aids Independent 04/23/25 10:52 Tubes/Lines None 04/23/25 10:52 Gait Evaluation No gait disturbance 04/23/25 10:52 Cognition No cognitive impairment 04/23/25 10:52 Fall Total Score 0 04/23/25 10:52 Level of Risk Standard/Low Risk 04/23/25 10:52 Problems (Last Reviewed 10/19/24 @ 12:26 by Monse Jacome, MAL[place]) Portal vein thrombosis (Acute) Elevated INR (Acute) Liver masses (Acute) v v v v v v v v v Sending and/or Receiving Nurses: Please use comment section below to note any information pertinent to the patient hand-off not included above. Information / Comments: 20 G R AC. Pt received morphine 4 mg and lovenox 60 mg in ED. Last BM 04/23/25 per pt. Abdomin is extremely firm, pt came in for abdominal pain. Report received from: Isrrael Summers RN
--- NOTE | 2025-04-23 17:23 | PCNE_ITS ---
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 Hospital Course: presented to ED today 04/23 w/CC RUQ pain, x5wks worsening sleep, appetite, gassiness l/t weight and acute pain which l/t presentation today; CT w/neoplastic appearing mass of R hepatic lobe, multiple metastatic lung lesions, mesenteric lesions, ascites, portal vein thrombosis; admitted for pain and thrombosis management - pain: given morphine in ED w/some effect, switched to hydromorphone for inpatient - per staff: moved BMs today, BS hyperactive, appetite improved w/pain mx, has miralax ordered PRN Sonu lives in [place] w/his Dayana, they have lived there for 23 years; they have 3 children. Since a high school football injury Sonu has preferred to live a non-conventional lifestyle, not following traditional medical practices. He sites several examples for why this occurred, today he does not feel any regrets or shame, more acceptance to what is. 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 Sonu reports a ANGELA history from ages [age] w/no concerns today. He has a great relationship w/his PCP Pain: RUQ pain controlled currently w/pain meds, continues to have mid center back pain, ongoing x3wks, feels maybe related to difficulty repositioning in bed and muscular, morphine did not do much but 2nd dose, presumably of hydromorphone, did reduce the pain, but it is lingering currently. Appetite: feeling hungry for dinner His goal for this hospitalization is to get control and manage his pain and treat his blood clot. He is open minded to hearing options for next steps regarding his potential malignancy He has never completd any ACP documents and is interested in reviewing these today Assessment and Plan Assessment and plan (1) Portal vein thrombosis: Status: Acute Assessment and plan: On LMWH 1mg/kg Q 12 H Labs in AM Sonu would want this treated appropriately prior to discharge (2) Abdominal pain: Status: Acute Assessment and plan: suspicious of malignancy -recommend continue hydromorphone 1mg q4h PRN at this time, may increase to 2mg if needed - calculate 24h MME, consider transition to long acting agent w/PRN IR for anticipated extension service specialist pain management; recommend fentanyl given liver dz however given his nutritional status some concerns w/absorption (3) Liver masses: Status: Acute Assessment and plan: preference for pursue biopsy confirmation at [facility] at this time - hospitalist to send referral (4) Emphysema, unspecified: Status: Chronic Assessment and plan: continue outpatient inhalers (5) Palliative care encounter: Status: Acute Assessment and plan: PC will plan on close f/u w/Mr. Ascencio, plan for inpt f/u on Wed if he is still inpt, pending outpatient scheduled f/u - to continue to review oncology POC and diagnostic work up - complete HCA post review w/ (6) ACP (advance care planning): Status: Acute Assessment and plan: reviewed recent relavent history, including today's ED presentation and new findings of hepatic mass w/suspicious lesions w/concern for malignancy reviewed options moving forward: 1. opt no diagnosis and go home w/hospice MARY, 2. think about options, treat current conditions, decide soon, 3. pursue outpatient referral for biopsy for diagnostic confirmation. 4. get biopsy opt out of further work up, 5. pursue diagnostic confirmation and treatment options - today he would like to pursue biopsy confirmation to nail down diagnosis reviewed oncology treatment options likely do not include surgery; may include radiation, chemotherapy, immunotherapy reviewed and completed COLST form reviewed HCA, preference would be [facility]ana as HCA, would want children as co- agents, but not sure which to select, would like to defer completion today to review w/ overall his goals are to be comfortable, spend time w/his loved ones and remain realistic w/outlook of life. He feels he has lived a wonderful life, is not afraid of dying and would not want to waste his time left going to apts, feeling crumby w/treatments, etc spent 45m w/ACP Review of Systems Narrative: as per HPI PFSH All Active Problems (Updated 04/23/25 @ 17:44 by Elsa Riddle NP) Palliative care encounter (Acute) ACP (advance care planning) (Acute) Abdominal pain (Acute) Portal vein thrombosis (Acute) Elevated INR (Acute) Liver masses (Acute) Emphysema, unspecified (Chronic) Seen on low-dose CT screen Nicotine dependence, cigarettes, uncomplicated (Chronic) Elevated liver transaminase level (Chronic ~2020) Essential (primary) hypertension (Chronic) Goal ~140/90; once achieved--> goal 130/80 Dx'ed 2020-->Lisinopril RX Medical History PAC (premature atrial contraction) (~03/2022) HR irregular--ECG confirmed PACs (frequent) Surgical History No significant past surgical history Family History Mother , 89yo multi-organ failure (pulm HTN, heart, kidney) Heart disease Hypertension Father , 76yo Sarahi cell cancer [place] cell cancer Brother Hypertension Social History Smoking/Tobacco Use Status: Current-Occasional Tobacco Type: cigarettes Tobacco: How many years used: 40 Quit status: considering quitting (Everyday he thinks about it.) Counseling given: provider counseling Smoking risk assessment performed?: Yes Alcohol Intake: former Year quit: 1986 Drug use: Current Sobriety Substance use type: marijuana Details: h/o cocaine use but not for 30 years Adopted: No Caregiver/Support person: No Foster care: No Household members: spouse and children Housing: house Number of Children: 3 number of grandchildren: 1 Communication Needs: None Education Level: high school Do you need help understanding health information?: Often current occupation: Retired Pets and animals: Yes (2 dogs, 1 cat) Pets and animals: dog(s) Sexually active: Yes Do you think of yourself as: straight/heterosexual Current gender identity: male What is your relationship status?: How often do you talk on the phone with friends or family?: once per week How often do you get together with friends or relatives?: once per week How often do you attend protestant or restorationist services?: decline to answer Do you belong to any clubs or organized social groups?: no Panel score (0-1 are the most socially isolated patients): 1 What type of physical activity do you participate in: regular exercise and normal ROM and activity Duration: 15-30 minutes/day Frequency: daily Dannielle/Muslim: None Special dannielle needs: No Seatbelt use: always Helmet use: No (No reason) Drive intox or ride w/intox local flatbed driver: No Fire extinguisher in home: Yes Do you feel safe at home: Yes Do you feel safe in your relationship?: Yes Victim of physical abuse: No Victim of emotional abuse: No Victim of sexual abuse: No Would you like helpful sources: No Additional Social history: to long-term with 3 children together: Desmond Weeks Maggie-Jean; originally from [place] Exam Narrative Exam Narrative: General: frail appearing thin 70y/o male, sitting in bedside recliner, feet dependent; AAOx3 HEENT: MMM, normocephalic, atraumatic, hearing grossly WNL Resp: even and unlabored, speaks full sentences w/o resp changes, no cough, no audible wheeze Psych: MS WNL; speech/movement WNL; thought process normal; cooperative; pleasant; insight/judgement good Results Last Vital Signs Temp 98.2 F 04/23/25 15:04 Pulse 91 H 04/23/25 15:04 Resp 17 04/23/25 15:04 BP 148/94 H 04/23/25 15:04 Pulse Ox 95 04/23/25 15:04 Labs 04/23/25 11:18 04/23/25 11:18 Labs: Laboratory Results - last 24 hr 04/23/25 04/23/25 10:48 11:18 WBC 7.34 RBC 5.60 Hgb 15.3 Hct 48.0 MCV 86 MCH 27.3 MCHC 31.9 L RDW 14.6 H Plt Count 376 MPV 11.1 H Immature Gran % 0.3 Neutrophils % 85.1 Lymphocytes % 7.4 Monocytes % 6.7 Eosinophils % 0.1 Basophils % 0.4 Nucleated RBC % 0.0 Absolute Neutrophils 6.25 Absolute Lymphocytes 0.54 L Absolute Monocytes 0.49 Absolute Eosinophils 0.01 Absolute Basophils 0.03 PT 13.6 H INR 1.4 H APTT 27.6 Sodium 132 L Potassium 4.8 Chloride 98 Carbon Dioxide 22.8 Anion Gap 11.2 H BUN 32 H Creatinine 1.0 Est GFR (CKD-EPI 2020) 79.97 Glucose 100 Calcium 9.2 Total Bilirubin 1.3 H AST 283 H ALT 39 Alkaline Phosphatase 207 H Total Protein 8.6 H Albumin 3.1 L Lipase 17 Urine Color Yellow Urine Clarity Clear Urine pH 5.5 Ur Specific [place] 1.025 Urine Protein 100 H Urine Ketones 15 H Urine Blood Negative Urine Nitrite Negative Urine Bilirubin Small H Urine Urobilinogen 1.0 H Ur Leukocyte Esterase Negative Urine RBC Negative Urine WBC 0-2 Ur Epithelial Cells Rare Urine Crystals Negative Urine Bacteria Few Urine Casts Negative Urine Mucus Moderate Urine Other Negative Ur Culture Indicated? No Urine Glucose Negative Time Spent Time Spent with Patient Time Spent(min): 75
[2025-04-23] MEDS: HYDROmorphone 2 MG/ML SYR 1 MG IVP (18:21)
[2025-04-23] MEDS: Normal Saline Flush 10 ML SYR IVP (19:59)
[2025-04-23] MEDS: Budesonide/Formoterol 160/4.5 6 GM 60 PUFF INH IH (20:05)
[2025-04-24] MEDS: Enoxaparin 60 MG/0.6 ML SYR SC ×3 (00:37→23:51)
[2025-04-24 06:33] LABS: Abs Immature Grans 0.02 10^3/uL (0.0-0.06); HCT 42.1 % (40.0-50.0); HGB 13.4 g/dL (13.5-17.5); Immature Grans % 0.4 %; MCH 27.0 pg (27.0-33.0); MCHC 31.8 % (32.0-36.0); MCV 85 fL (80-95); MPV 11.5 fL (8.0-11.0); Platelet Count 338 10^3/uL (130-400); RBC 4.97 10^6/uL (4.36-5.78); RDW 14.7 % (11.8-14.1); RDW-SD 45.1 fL; WBC 5.63 10^3/uL (4.4-10.8)
[2025-04-24 07:00] LABS: ALT 35 U/L (16-63); AST 226 U/L (15-37); Albumin 2.6 g/dL (3.4-5.0); Alkaline Phosphatase 204 U/L (46-116); Anion Gap 8.9 mmol/L (3-11); BUN 40 mg/dL (7-18); Bilirubin, Total 0.8 mg/dL (0.2-1.0); CO2 25.1 mmol/L (21.0-32.0); Calcium 8.7 mg/dL (8.5-10.1); Chloride 100 mmol/L (98-107); Estimated GFR 94.03 (mL/min/1.73m2); Glucose 90 mg/dL (74-106); Potassium 4.5 mmol/L (3.5-5.1); Sodium 134 mmol/L (136-145); Total Protein 7.3 g/dL (6.4-8.2)
[2025-04-24 07:37] VITALS: BP 144/80; PULSE 63; RESP 16; TEMP 37.4; O2SAT 94
[2025-04-24] MEDS: Normal Saline Flush 10 ML SYR IVP ×2 (08:26→20:47)
[2025-04-24] MEDS: HYDROmorphone 2 MG/ML SYR 1 MG IVP (08:27)
[2025-04-24] MEDS: Lisinopril 20 MG TAB PO (08:27)
[2025-04-24] MEDS: Budesonide/Formoterol 160/4.5 6 GM 60 PUFF INH IH ×2 (08:50→19:40)
--- NOTE | 2025-04-24 09:47 | PDOC.CMIN ---
Date of service: 04/24/25 Time of Service: 09:48 Care Management Initial [facility] Initial Assessment Reason for Hospitalization: abdominal pain secondary to lever masses, portal vein thrombosis- believed to have metastatic cancer Functional Status/Living Situation Patient Presentation: Sonu presented to the ED yesterday morning with c/o RUQ pain. He was found to have a large hepatic mass with multiple metastatic sites and also a portal vein thrombosis. Due to his pain, inability to tolerate PO, and inability to sleep, he was admitted to the [facility] surg floor. Sonu lives [facility] in [place] with his Dayana. He had a football injury in high school, and has since preferred to not follow traditional medical practices. Per his palliative consult yesterday, Sonu has no regrets about his lifestyle. He also stated to palliative that his goal of this admission is to get control and manage his pain and treat his blood clot. He is open minded to hearing options for next steps regarding his potential malignancy. Sonu signed a COLST yesterday with the palliative provider. Sonu was very pleasant with CM today. He was up and about in his room when CM met with him. He is notably worried about his new diagnosis, and is eager to get moving in the process. Ron is well supported by his . Ron will be referred to [facility] oncology for further work up. LESLIE connected with the cardiac care nurse at [place], his PCP office. She was aware of Ron already, as she has received his hospital notes. Appointment with Ron's PCP was made at this time - Monse Jacome- 05/09 at 4:30 pm. Town of Residence: [facility] Resides with: Spouse (Dayana) Significant Other/Family: Out of area (2 children and their families 1 son, Cory, lives in [place], but has his own health issues) Natural Supports: family Employment Status: Retired (had his own siding and window replacement business) Instrumental Activities of Daily Living (ADLs): Independent Medications Medication Management: No Issues/Barriers identified Advance Directives Advance Directives: Do you have an Advance Directive: N 10/16/20, 14:11 AD On File at [facility]: N 10/16/20, 14:11 Date Asked 04/23/25 04/23/25, 10:31 AD Date Reviewed COLST On File at [facility] Yes 04/23/25, 18:17 COLST Date Scanned 04/23/25 04/23/25, 18:17 Comment: Sonu completed a HCA form and a COLST with pallliative care yesterday. Code Status Resuscitation Status DNR/DNI Insurance Coverage/Financial Issues Insurance: Medicare Part A & B - [id number] Medicaid of [place]? Care Team Visit Care Team Role Provider Type Letha Borja APRN MD [facility] STAFF PHYSICIAN Monse Jacome NP Primary Care Provider NURSE PRACTITIONER Nikita Ruby MD Emergency Provider [facility] STAFF PHYSICIAN Shivam Martines MD Admit Provider [facility] STAFF PHYSICIAN Attending Provider Discharge Potential Discharge Needs: PCP F/U Appt and Other (oncology referral at [facility]) Anticipated Barriers to Discharge: None Identified Patient/Family Education Needs: Review discharge instructions, discuss Ask Me Three Transportation: Private vehicle Plan: Ron will likely discharge tomorrow with no new services. He will f/u with his PCP on 05/10/25 at 4:30pm and will f/u with oncology at [facility]. Ron will transport home with his . CM will continue to follow. Social Determinants of Health Screening Social Determinants of health last assessed in clinic: 04/24/25 Will the Patient Participate in the Screening?: Yes Do you worry about having a steady place to live?: no Problems where you live: no known problems In the past 12 months, have you had to go without electric, gas, oil or water in your home?: no 1. Within the past 12 months, we worried whether our food would run out before we got money to buy more.: Don't know/refused 2. Within the past 12 months, the food we bought just didn't last and we didn't have money to get more.: Don't know/refused Has lack of transportation kept you from medical appointments or from doing things needed for daily living?: no Has anyone in your life made you feel unsafe or unsupported?: no How hard is it for you to pay for the very basics like food, housing, medical care, and heating? Would you say it is:: Not hard at all Do you want help finding or keeping work or a job?: I do not need or want help If for any reason you need help with day-to-day activities such as bathing, preparing meals, shopping, managing finances, etc., do you get the help you need?: I don?t need any help How often do you feel lonely or isolated from those around you?: Never Do you speak a language other than Ukrainian at home?: No Does the patient want assistance with any of the above?: No PFSH All Active Problems (Updated 04/24/25 @ 14:02 by Letha Borja APRN) Nausea (Acute) Palliative care encounter (Acute) ACP (advance care planning) (Acute) Abdominal pain (Acute) Portal vein thrombosis (Acute) Elevated INR (Acute) Liver masses (Acute) Emphysema, unspecified (Chronic) Seen on low-dose CT screen Nicotine dependence, cigarettes, uncomplicated (Chronic) Elevated liver transaminase level (Chronic ~2020) Essential (primary) hypertension (Chronic) Goal ~140/90; once achieved--> goal 130/80 Dx'ed 2020-->Lisinopril RX Medical History PAC (premature atrial contraction) (~03/2022) HR irregular--ECG confirmed PACs (frequent) Surgical History No significant past surgical history Family History Mother , 89yo multi-organ failure (pulm HTN, heart, kidney) Heart disease Hypertension Father , 76yo Sarahi cell cancer [place] cell cancer Brother Hypertension Social History Smoking/Tobacco Use Status: Current-Occasional Tobacco Type: cigarettes Tobacco: How many years used: 40 Quit status: considering quitting (Everyday he thinks about it.) Counseling given: provider counseling Smoking risk assessment performed?: Yes Alcohol Intake: former Year quit: 1986 Drug use: Current Sobriety Substance use type: marijuana Details: h/o cocaine use but not for 30 years Adopted: No Caregiver/Support person: No Foster care: No Household members: spouse and children Housing: house Number of Children: 3 number of grandchildren: 1 Communication Needs: None Education Level: high school Do you need help understanding health information?: Often current occupation: Retired Pets and animals: Yes (2 dogs, 1 cat) Pets and animals: dog(s) Sexually active: Yes Do you think of yourself as: straight/heterosexual Current gender identity: male What is your relationship status?: How often do you talk on the phone with friends or family?: once per week How often do you get together with friends or relatives?: once per week How often do you attend sabianist or sabianist services?: decline to answer Do you belong to any clubs or organized social groups?: no Panel score (0-1 are the most socially isolated patients): 1 What type of physical activity do you participate in: regular exercise and normal ROM and activity Duration: 15-30 minutes/day Frequency: daily Dannielle/Moravian: None Special dannielle needs: No Seatbelt use: always Helmet use: No (No reason) Drive intox or ride w/intox team truck driver: No Fire extinguisher in home: Yes Do you feel safe at home: Yes Do you feel safe in your relationship?: Yes Victim of physical abuse: No Victim of emotional abuse: No Victim of sexual abuse: No Would you like helpful sources: No Additional Social history: to long-term with 3 children together: Desmond Weeks Maggie-Jean; originally from [place]
--- NOTE | 2025-04-24 09:52 | W.PM.PROGNOT ---
Date of Service Date of service: 04/24/25 Time of Service: 13:42 Assessment and Plan Assessment and plan (1) Portal vein thrombosis: Status: Acute Assessment and plan: As per CT imaging on admission Continue LMWH at 1mg/kg Q 12 H Oncology consult at [facility] for DOAC ( Eliquis) transition VS heparin SC at home. recommendations for Shared decision making with provider, patient,PCP and palliative care provider ending with oncology referral at [facility] ( as per patient's preferrence) for further diagnostic testing and management- Referral initiated Labs in AM If DOAC recommended will start 2 hours prior to nest dose of scheduled LMWH (2) Liver masses: Status: Acute Assessment and plan: As per imaging large liver mass with suspected multiple mets sites - lungs, mesentery Oncology referral at [facility] initiated Palliative care consult completed with change in code status - please read notes (3) Abdominal pain: Status: Acute Assessment and plan: Most likely d/t above process Fentanyl patch 12 mcg/72 hours PRN IV hydromorphone - transitioned to PRN oral dosing Scheduled bowel management meds PRN compaizne nausea (4) Nausea: Status: Acute Assessment and plan: as above PPI consider thorazine for persistent hiccups (5) Elevated INR: Status: Acute Assessment and plan: With normal PTT Trend coags (6) Emphysema, unspecified: Status: Chronic Assessment and plan: On home med regimen (7) Nicotine dependence, cigarettes, uncomplicated: Status: Chronic Assessment and plan: NRT PRN if the patient is requesting (8) Essential (primary) hypertension: Status: Chronic Assessment and plan: Was on lisinopril at home 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 Remains stable Will continue to monitor,considered a beta-maciel in the setting of possible portal HTN d/t point one and two No history of cirrhosis or esophageal varices with remote history of ETOH dependence over 35 years ago, but mild ascites as per imaging Discussed with Dr Martines Subjective Subjective Patient reports: pain is less (new hiccups with transient stabbing abd pain irradiating to R chest/back), tolerating liquids well, tolerating a regular diet, voiding w/o difficulty, flatus, no bowel movement and nausea; denies diarrhea, vomiting, shortness of breath or fever Exam Narrative Exam Narrative: Cachectic appearing 70 yo male, alert and oriented X4, neurologically intact, unlabored breathing ,decreased bibasilar breath sounds, S1, S2 regular no murmur, PPPX4, Abd is round, semi-firm, w/o tenderness to palpation , no CVA tenderness ,moves all 4 ext, pitting edema to ankle 2+ Objective Last Vital Signs Temp 37.4 C 04/24/25 07:37 Pulse 63 04/24/25 07:37 Resp 16 04/24/25 07:37 BP 144/80 H 04/24/25 07:37 Pulse Ox 94 04/24/25 07:37 Laboratory Results - last 24 hr 04/23/25 04/23/25 04/24/25 10:48 11:18 06:00 WBC 7.34 5.63 RBC 5.60 4.97 Hgb 15.3 13.4 L Hct 48.0 42.1 MCV 86 85 MCH 27.3 27.0 MCHC 31.9 L 31.8 L RDW 14.6 H 14.7 H Plt Count 376 338 MPV 11.1 H 11.5 H Immature Gran % 0.3 0.4 Neutrophils % 85.1 67.8 Lymphocytes % 7.4 19.2 Monocytes % 6.7 11.0 Eosinophils % 0.1 0.9 Basophils % 0.4 0.7 Nucleated RBC % 0.0 0.0 Absolute Neutrophils 6.25 3.82 Absolute Lymphocytes 0.54 L 1.08 L Absolute Monocytes 0.49 0.62 Absolute Eosinophils 0.01 0.05 Absolute Basophils 0.03 0.04 PT 13.6 H INR 1.4 H APTT 27.6 Sodium 132 L 134 L Potassium 4.8 4.5 Chloride 98 100 Carbon Dioxide 22.8 25.1 Anion Gap 11.2 H 8.9 BUN 32 H 40 H Creatinine 1.0 0.8 Est GFR (CKD-EPI 2020) 79.97 94.03 Glucose 100 90 Calcium 9.2 8.7 Total Bilirubin 1.3 H 0.8 AST 283 H 226 H ALT 39 35 Alkaline Phosphatase 207 H 204 H Total Protein 8.6 H 7.3 Albumin 3.1 L 2.6 L Lipase 17 Urine Color Yellow Urine Clarity Clear Urine pH 5.5 Ur Specific [place] 1.025 Urine Protein 100 H Urine Ketones 15 H Urine Blood Negative Urine Nitrite Negative Urine Bilirubin Small H Urine Urobilinogen 1.0 H Ur Leukocyte Esterase Negative Urine RBC Negative Urine WBC 0-2 Ur Epithelial Cells Rare Urine Crystals Negative Urine Bacteria Few Urine Casts Negative Urine Mucus Moderate Urine Other Negative Ur Culture Indicated? No Urine Glucose Negative Time Spent with Patient Time Spent with Patient: >50 minutes Time was spent: preparing to see the patient(eg.review tests), obtaining and/or reviewing separately otained hiistory, ordering medications,tests, procedures, referring, communicating with other health personal carer, indepentently interpreting results, counseling the patient, care coordination and other
[2025-04-24] MEDS: fentaNYL 12 MCG PATCH TD (11:09)
[2025-04-24 11:55] VITALS: BP 132/75; PULSE 62; RESP 18; TEMP 36.8; O2SAT 93
[2025-04-24] MEDS: HYDROmorphone 2 MG TAB PO (12:16)
[2025-04-24] MEDS: Prochlorperazine 10 MG/2 ML VIAL 5 MG IVP (13:19)
[2025-04-24] MEDS: Pantoprazole 40 MG VIAL IVP (13:19)
--- NOTE | 2025-04-24 14:30 | CHAPLAIN ---
Sonu was resting in bed when I visited. He was pleasant and told me that his was coming in later. They live in [place]. Sonu is here for abdominal pain and a possible mass. I explained my role, offered support and will continue to visit.
[2025-04-24] MEDS: Docusate Sodium 100 MG/10 ML CUP PO ×2 (14:32→20:46)
[2025-04-24] MEDS: Polyethylene Glycol 3350 17 GM PACKET PO ×2 (14:32→20:46)
[2025-04-24] MEDS: Simethicone 80 MG CHEW 40 MG PO ×3 (14:33→22:07)
[2025-04-24 21:15] VITALS: BP 126/72; PULSE 70; RESP 16; TEMP 36.6; O2SAT 95
[2025-04-25 07:06] LABS: Abs Immature Grans 0.01 10^3/uL (0.0-0.06); HCT 41.6 % (40.0-50.0); HGB 13.2 g/dL (13.5-17.5); Immature Grans % 0.2 %; MCH 27.0 pg (27.0-33.0); MCHC 31.7 % (32.0-36.0); MCV 85 fL (80-95); MPV 11.7 fL (8.0-11.0); Platelet Count 316 10^3/uL (130-400); RBC 4.88 10^6/uL (4.36-5.78); RDW 14.8 % (11.8-14.1); RDW-SD 45.5 fL; WBC 5.82 10^3/uL (4.4-10.8)
[2025-04-25 07:19] LABS: INR 1.2 (0.9-1.1); Prothrombin Time 12.3 sec (9.1-11.1)
[2025-04-25 07:26] VITALS: BP 138/79; PULSE 61; RESP 16; TEMP 37.3; O2SAT 95
[2025-04-25 07:29] LABS: ALT 41 U/L (16-63); AST 232 U/L (15-37); Albumin 2.4 g/dL (3.4-5.0); Alkaline Phosphatase 275 U/L (46-116); Anion Gap 7.0 mmol/L (3-11); BUN 28 mg/dL (7-18); Bilirubin, Total 0.9 mg/dL (0.2-1.0); CO2 26.0 mmol/L (21.0-32.0); Calcium 8.6 mg/dL (8.5-10.1); Chloride 100 mmol/L (98-107); Estimated GFR 97.90 (mL/min/1.73m2); Glucose 97 mg/dL (74-106); Potassium 4.3 mmol/L (3.5-5.1); Sodium 133 mmol/L (136-145); Total Protein 7.1 g/dL (6.4-8.2)
[2025-04-25] MEDS: Budesonide/Formoterol 160/4.5 6 GM 60 PUFF INH IH (08:31)
[2025-04-25] MEDS: HYDROmorphone 2 MG TAB PO ×2 (09:23→13:16)
--- NOTE | 2025-04-25 09:46 | PCPN_ITS ---
Date of service: 04/25/25 Time of Service: 09:20 Assessment and Plan Assessment and plan (1) Abdominal pain: Status: Acute Assessment and plan: some improvement w/fentanyl - recommend increase to 25mcg/hr - received hydromorphone 2mg PO at 09:20 04/25/25; encouraged Sonu say something if in more pain, helpful for monitoring efficacy of medications; good relief w/in 1 hr today - simethicone helpful for gas relief; consider ascites fluid management w/either diuresis vs surg consult, defer to hospitalist (2) Portal vein thrombosis: Status: Acute Assessment and plan: pending [facility] consult, recommendations for Eliquis PO vs lovenox SC - Eliquis 5mg BID at time of discharge reviewed repeat US in 1-3m per treatment management review, will defer to [facility] at this time (3) Liver masses: Status: Acute Assessment and plan: highly suspicious for malignancy [facility] onc consult previously placed Sonu would like biopsy for diagnostic confirmation (4) Emphysema, unspecified: Status: Chronic (5) Constipation: Status: Acute Assessment and plan: recommend start Senna for presumed opioid related constipation recommend reduce Miralax to 1/2 cap qd PRN continue to monitor (6) Palliative care encounter: Status: Acute Assessment and plan: PC will continue to provide Sonu support outpatient as able, he lives outside HV service area, will offer TH initially pending [facility] f/u - recommend early hospice referral pending [facility] f/u (7) ACP (advance care planning): Status: Acute Assessment and plan: reviewed and completed [facility]CA reviewed treatment plan for PTT, pain and ascites; w/recommendations reviewed POC regarding returning home, preference to make sure have answers prior to discharge, would like to return home at soonest avail time spent 20m w/ACP Subjective Subjective Interval history since last seen: Sonu remains hospitalized at [facility] 2/2 portal vein thrombosis and pain mx PTT: [facility] consult recommend Eliquis PO vs lovenox SC; he is aware of these recommendations and is comfortable w/either, his Kaia would be able to administer this injection if needed; he wonders how would we know if it's working on the clot and what the monitoring protocols are Pain: started fent patch 12mcg/hr yesterday at 11a, he did have good response to this, up until this morning, back pain wrapping to RUQ is present currently, had not needed any PRNs until now, would like to have PRN currently; last hydromorphone 2mg PO yesterday at 12:15, w/good good effect to date; - post Dilaudid dose, he did have some relief w/sharp, aching, throbbing pain, however still has sig discomfort in abdomen w/fullness sensation, getting some relief w/simethicone and when he burps BM:last BM this morning, was initially hard packed then diarrhea w/loose stool; he did note some pinkish-brown color in his stool over the stool, concern it may be bloody, no BRB in toilet. no history of hemorrhoids. Function: has been transitioning to bathroom ind w/no issues, feels stable on feet, at his baseline activity/function Appetite: has been good, typically eats 2 meals a day when feeling well; last t wo days has eaten 2 meals, including 100% of breakfast today; he has no nausea. he is getting some gas, simethicone w/good effect; he is worried about over eating increasing pain sxs Oncology: no updates from [facility] onc; hospitalist will call again today; Sonu continues to wish to pursue biopsy for diagnostic confirmation Social: Sai came to visit yesterday; 3 children, Desmond ([facility]), Micky ([place]) and Jacquie Trotter ([place]). Jacquie Trotter is currently in [place] on her honeymoon. the other children are aware of what is going on, they are waiting to tell her for when she returns in 4 days. ACP: continues to want to pursue biopsy for diagnostic clarification. would want to follow the guidelines for clot management and as it relates to his biopsy timeline. - leigh and sai did talk about the HCA form, still unsure which child to assign co-agent Exam Narrative Exam Narrative: General: frail appearing thin 70y/o male, lying on R side on arrival, ind transfers from lying to sitting on edge of bed; AAOx3 HEENT: MMM, normocephalic, atraumatic, hearing grossly WNL Resp: even and unlabored, speaks full sentences w/o resp changes, no cough, no audible wheeze GI: abd distended Psych: MS WNL; speech/movement WNL; thought process normal; cooperative; pleasant; insight/judgement good Objective Last Vital Signs Temp 99.1 F 04/25/25 07:26 Pulse 61 04/25/25 07:26 Resp 16 04/25/25 07:26 BP 138/79 04/25/25 07:26 Pulse Ox 95 04/25/25 07:26 Laboratory Results - last 24 hr 04/25/25 06:13 WBC 5.82 RBC 4.88 Hgb 13.2 L Hct 41.6 MCV 85 MCH 27.0 MCHC 31.7 L RDW 14.8 H Plt Count 316 MPV 11.7 H Immature Gran % 0.2 Neutrophils % 62.4 Lymphocytes % 23.9 Monocytes % 11.2 Eosinophils % 1.4 Basophils % 0.9 Nucleated RBC % 0.0 Absolute Neutrophils 3.64 Absolute Lymphocytes 1.39 Absolute Monocytes 0.65 Absolute Eosinophils 0.08 Absolute Basophils 0.05 PT 12.3 H INR 1.2 H Sodium 133 L Potassium 4.3 Chloride 100 Carbon Dioxide 26.0 Anion Gap 7.0 BUN 28 H Creatinine 0.7 Est GFR (CKD-EPI 2020) 97.90 Glucose 97 Calcium 8.6 Total Bilirubin 0.9 AST 232 H ALT 41 Alkaline Phosphatase 275 H Total Protein 7.1 Albumin 2.4 L
[2025-04-25] MEDS: Simethicone 80 MG CHEW 40 MG PO ×2 (09:50→13:14)
[2025-04-25] MEDS: Normal Saline Flush 10 ML SYR IVP (09:51)
[2025-04-25] MEDS: Polyethylene Glycol 3350 17 GM PACKET PO (09:51)
[2025-04-25] MEDS: Docusate Sodium 100 MG/10 ML CUP PO ×2 (09:53→13:14)
[2025-04-25 12:52] LABS: Ammonia < 10 umol/L (11-32)
[2025-04-25] MEDS: Furosemide 20 MG/2 ML VIAL 10 MG IVP (13:14)
--- NOTE | 2025-04-25 13:15 | W.PM.DS.N ---
Date of service: 04/25/25 Time of Service: 13:15 DS: Diagnosis Discharge Diagnosis (1) Palliative care encounter: Status: Acute (2) ACP (advance care planning): Status: Acute (3) Abdominal pain: Status: Acute (4) Portal vein thrombosis: Status: Acute (5) Liver masses: Status: Acute (6) Emphysema, unspecified: Status: Chronic Discharge Plan Disposition Patient Disposition: Home Condition: Stable Discharge Details Reason For Visit: abdominal pain, portal thrombosis Admit Date/Time: 04/23/25 14:56 Admit Provider: Shivam Martines Attending Provider: Shivam Martines Primary Care Provider: Monse Jacome Hospital Course Hospital Course: This 68 years old male patient with past medical history of COPD, remote EtOH dependence, nicotine dependence, hypertension presented to the ED with right-sided abdominal pain starting 3 weeks ago with sensation of bloating and decreased appetite and eructation. On examination patient had right upper quadrant mass. A CT scan of the chest abdomen pelvis showed large ominous neoplastic appearing mass occupying a large part of the right hepatic lobe; thrombosis of the main portal vein,multiple metastatic lesions throughout both lungs, metastatic mesenteric lesions mild amount of ascites in the abdomen and pelvis. Workup in the ED showed INR 1.4 w repeat at 1.2 , initial PTT at 13.6 minimally elevated bilirubin now at 0.8. Treatment initiated in the ED with LMWH and IV mosphine. The patient was admitted to the medical floor for hepatic mass, portal thrombosis and pain management. Shared decision making process completed with provider, patient,PCP and palliative care provider ending with oncology referral at [facility] ( as per patient's preferrence). Oncology consulted at [facility] on 04/24 for recommendation for DOAC VS heparin for urgent biopsy scheduling w/o call return from Dr Larkin. Lovenox stopped and eliquis initiated. Morphine transitioned to hydromorphone and fentanyl patch with improved pain control. Abdominal ascites and edema to LEs/ ankles treated with IV furosemide with transition to oral in addition to spironolactone; lisinopril discontinued. The patient will continue to see palliative care outpatient and has a scheduled appointment with his PCP. Discussed with Dr. Jessica Recommendations for Follow Up Recommended tests to be ordered by follow up provider: CMP Home Meds and New Rx's Prescriptions: New Eliquis 5 mg Tablet 10 mg PO BID Qty: 192 0RF Rx Instructions: Take 10 mg orally twice a day ( morning and evening) until 05/01/25 evening dose then on 05/02/25 AM start taking 5 mg orally twice a day. fentanyl 12 mcg/hr Patch 72 Hour 25 mcg transdermal Q72H Qty: 5 0RF hydromorphone 2 mg Tablet 2 mg PO Q4H PRN PRNQty: 20 0RF furosemide 20 mg Tablet 20 mg PO DAILY Qty: 30 0RF nicotine 14 mg/24 hr Patch 24 Hour 14 mg transdermal DAILY Qty: 28 0RF polyethylene glycol 3350 17 gram Powder In Packet 17 g PO DAILY Qty: 30 0RF simethicone 80 mg Tablet,Chewable 40 mg PO PC & HS Qty: 60 0RF docusate sodium [Colace] 100 mg capsule 100 mg PO DAILY Qty: 30 0RF ondansetron 4 mg tablet,disintegrating 4 mg PO Q8H PRNQty: 120 0RF pantoprazole [Protonix] 40 mg tablet,delayed release (DR/EC) 40 mg PO DAILY Qty: 30 0RF spironolactone 50 mg tablet 50 mg PO DAILY Qty: 30 0RF Continued (DME) nebulizers [Aeroneb Go Nebulizer] [facility] See Rx Instructions .ROUTE .MEDSUPPLY Qty: 1 0RF Rx Instructions: As directed; dispense any brand covered and associated supplies ipratropium-albuterol 0.5 mg-3 mg(2.5 mg base)/3 mL solution for nebulization 3 ml inhalation QID PRN (Reason: wheezing) Qty: 180 0RF cetirizine [Zyrtec] 10 mg tablet 10 mg PO DAILY PRN albuterol sulfate 90 mcg/actuation HFA aerosol inhaler See Rx Instructions .ROUTE .COMPLEX Qty: 25.5 3RF Dose Instruction: INHALE TWO PUFFS BY MOUTH EVERY 4 HOURS NEEDED FOR SHORTNESS OF BREATH OR WHEEZING Rx Instructions: INHALE TWO PUFFS BY MOUTH EVERY 4 HOURS NEEDED FOR SHORTNESS OF BREATH OR WHEEZING Incruse Ellipta 62.5 mcg/actuation blister with device 1 inh inhalation DAILY Qty: 90 3RF Rx Instructions: Spiriva not covered by insurance, so trial Incruse Ellipta for breathing fluticasone propion-salmeterol [Advair HFA] 230-21 mcg/actuation HFA aerosol inhaler See Rx Instructions .ROUTE .COMPLEX Qty: 3 3RF Dose Instruction: INHALE TWO PUFFS BY MOUTH TWICE A DAY Rx Instructions: INHALE TWO PUFFS BY MOUTH TWICE A DAY Discontinued lisinopril 20 mg tablet 20 mg PO DAILY Qty: 90 3RF Rx Instructions: BP with goal <140/90 Discharge Instructions Stand Alone Forms: Nursing Discharge Form Referrals: HEMATOLOGY/ONC,[facility] [OTHER, Oncology] Referral Note: Urgent: large ominous neoplastic appearing mass occupying a large part of the right hepatic lobe; thrombosis of the main portal vein; gallbladder likely included in mass - not seen, mild amount of ascites in the abdomen and pelvis. Also seen metastatic mesenteric lesions, the largest interposed between the pancreatic tail and left kidney, and multiple metastatic lesions throughout both lungs Referral sent Monse Jacome NP [Primary Care Provider, Medicine] - 05/09/25 4:30 pm Referral Note: PCP was made at this time with Monse Jacome- 05/09 at 4:30 pm. Activity:: Activity as Tolerated Equipment/Supplies:: No Equipment Needed Diet:: As Tolerated Discharge Orders Discharge Orders: Discharge Order (Routine); Ordered 04/25/25 Ordered By: Letha Borja Other Ambulatory Orders: Comprehensive Metabolic Panel (Routine) Timeframe: 20250430 Facility: [facility] - Location: Laboratory Outpatient - [facility] Ordered By: Letha Borja DS: Summary Time Spent with Patient providing and/or coordinating discharge services: Greater than 30 minutes Status at Discharge Functional status at discharge: independent ambulation Overall status at discharge: patient is progressing back to baseline Mental Status: mental status grossly normal Speech and Movement: speech and movement normal Mood: congruent mood Affect: normal affect Quality:SDOH Health Related Social Needs: Health related social needs details N/A Exam Narrative Exam Narrative: Cachectic appearing 70 yo male, alert and oriented X4, neurologically intact, non-icteric sclera,+ JVD, unlabored breathing ,decreased bibasilar breath sounds, S1, S2 regular no murmur, PPPX4, Abd is round, semi-firm, improved tenderness to palpation of RUQ, epigastric area , no CVA tenderness ,moves all 4 ext, pitting edema to ankle 2+ Psych Mental Status: mental status grossly normal Speech and Movement: speech and movement normal Mood: congruent mood Affect: normal affect DS: Data Vitals/I&O Vitals and I&O: Vital Signs Temperature 37.3 C 04/25/25 07:26 Temperature Source Temporal Artery Scan 04/25/25 07:26 Pulse 61 04/25/25 07:26 Pulse Rhythm Regular 04/23/25 15:04 Respiratory Rate 16 04/25/25 07:26 Respiratory Effort Normal, Non-Labored 04/23/25 15:04 Respiratory Depth Normal 04/23/25 15:04 Respiratory Pattern Normal 04/23/25 15:04 Blood Pressure 138/79 04/25/25 07:26 Blood Pressure Mean 98 04/25/25 07:26 Pulse Oximetry 95 04/25/25 07:26 Oxygen Delivery Method Room Air 04/25/25 07:26 Oxygen Flow Rate 0 04/25/25 07:26 Pain Level 2 04/24/25 13:16 Comment rn notified 04/24/25 07:37 Intake & Output 04/24/25 04/25/25 04/25/25 23:59 11:59 23:59 Other: Urine Color Yellow Urine Appearance Clear Urine Odor Normal Data Completed and Pending Labs on day of discharge: Labs from last 24 hours 04/25/25 04/25/25 12:20 06:13 WBC 5.82 RBC 4.88 Hgb 13.2 L Hct 41.6 MCV 85 MCH 27.0 MCHC 31.7 L RDW 14.8 H Plt Count 316 MPV 11.7 H Immature Gran % 0.2 Neutrophils % 62.4 Lymphocytes % 23.9 Monocytes % 11.2 Eosinophils % 1.4 Basophils % 0.9 Nucleated RBC % 0.0 Absolute Neutrophils 3.64 Absolute Lymphocytes 1.39 Absolute Monocytes 0.65 Absolute Eosinophils 0.08 Absolute Basophils 0.05 PT 12.3 H INR 1.2 H Sodium 133 L Potassium 4.3 Chloride 100 Carbon Dioxide 26.0 Anion Gap 7.0 BUN 28 H Creatinine 0.7 Est GFR (CKD-EPI 2020) 97.90 Glucose 97 Calcium 8.6 Total Bilirubin 0.9 AST 232 H ALT 41 Alkaline Phosphatase 275 H Ammonia < 10 L Total Protein 7.1 Albumin 2.4 L PFSH All Active Problems (Updated 04/25/25 @ 13:31 by Elsa Riddle NP) Constipation (Acute) Nausea (Acute) Palliative care encounter (Acute) ACP (advance care planning) (Acute) Abdominal pain (Acute) Portal vein thrombosis (Acute) Elevated INR (Acute) Liver masses (Acute) Emphysema, unspecified (Chronic) Seen on low-dose CT screen Nicotine dependence, cigarettes, uncomplicated (Chronic) Elevated liver transaminase level (Chronic ~2020) Essential (primary) hypertension (Chronic) Goal ~140/90; once achieved--> goal 130/80 Dx'ed 2020-->Lisinopril RX Medical History PAC (premature atrial contraction) (~03/2022) HR irregular--ECG confirmed PACs (frequent) Surgical History No significant past surgical history Family History Mother , 89yo multi-organ failure (pulm HTN, heart, kidney) Heart disease Hypertension Father , 76yo Sarahi cell cancer [place] cell cancer Brother Hypertension Social History Smoking/Tobacco Use Status: Current-Occasional Tobacco Type: cigarettes Tobacco: How many years used: 40 Quit status: considering quitting (Everyday he thinks about it.) Counseling given: provider counseling Smoking risk assessment performed?: Yes Alcohol Intake: former Year quit: 1986 Drug use: Current Sobriety Substance use type: marijuana Details: h/o cocaine use but not for 30 years Adopted: No Caregiver/Support person: No Foster care: No Household members: spouse and children Housing: house Number of Children: 3 number of grandchildren: 1 Communication Needs: None Education Level: high school Do you need help understanding health information?: Often current occupation: Retired Pets and animals: Yes (2 dogs, 1 cat) Pets and animals: dog(s) Sexually active: Yes Do you think of yourself as: straight/heterosexual Current gender identity: male What is your relationship status?: How often do you talk on the phone with friends or family?: once per week How often do you get together with friends or relatives?: once per week How often do you attend roman catholic or judaism services?: decline to answer Do you belong to any clubs or organized social groups?: no Panel score (0-1 are the most socially isolated patients): 1 What type of physical activity do you participate in: regular exercise and normal ROM and activity Duration: 15-30 minutes/day Frequency: daily Dannielle/Lutheran: None Special dannielle needs: No Seatbelt use: always Helmet use: No (No reason) Drive intox or ride w/intox 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 Fire extinguisher in home: Yes Do you feel safe at home: Yes Do you feel safe in your relationship?: Yes Victim of physical abuse: No Victim of emotional abuse: No Victim of sexual abuse: No Would you like helpful sources: No Additional Social history: to long-term with 3 children together: Desmond Weeks Maggie-Jean; originally from [place] Time Spent with Patient Time Spent with Patient: >85 minutes Time was spent: preparing to see the patient(eg.review tests), obtaining and/or reviewing separately otained hiistory, ordering medications,tests, procedures, referring, communicating with other health managed care liaison, indepentently interpreting results, counseling the patient, care coordination and other
[2025-04-25] MEDS: fentaNYL 25 MCG PATCH TD (13:16)
[2025-04-25] MEDS: Apixaban 5 MG TAB 10 MG PO (13:27)
[2025-04-25 13:37] LABS: Hepatitis A Antibody IgM Negative (Negative); Hepatitis C Ab w Rflx HCV PCR Reactive (Negative)
--- NOTE | 2025-04-25 14:07 | CMDISCH_ITS ---
Date of service: 04/25/25 Time of Service: 14:07 LACE Index Scoring Tool Questions: Length of Stay (in days): 2 Was the patient admitted via the E.D.?: Yes Comorbidities: Metastatic Solid Tumor E.D. Visits: 1 Answers: Total Score: 11 Risk of Readmission: High Risk Care Management Discharge Plan Reason for Hospitalization: pain secondary to liver mass - found to have metastatic liver cancer Discharge Plan: Ron is discharged home today with no new home health services. He will f/u with his PCP on 05/09 at 4:30, and with oncology at [facility] - referral has been sent. Ron and his , Dayana, will be meeting with his provider wanda lopez to his going home today. Ron will transport home with Dayana. Patient/Family Education Needs: Review of discharge instructions, activity, limitations, and discuss Ask me 3. SDOH Health Related Social Needs: Health related social needs details N/A
[2025-04-25] MEDS: Spironolactone 50 MG TAB PO (14:25)
[2025-04-25] MEDS: Pantoprazole 40 MG VIAL IVP (14:25)
[2025-04-25 14:27] VITALS: BP 136/67
[2025-04-26 11:19] LABS: HCV RNA Qualitative Detected (Undetected)
[2025-04-27 13:45] LABS: HBc IgM Ab, S Negative (Negative)
== END 2025-04-25 15:19 | disposition home or self-care (01) | DRG 435 ==
LOC: ER 13:11 → MS 14:57
PROVIDERS: Admitting Provider Family Medicine; Emergency Provider Emergency Medicine; PCP Nurse Practitioner Adult Health; Responsible Provider Nurse Practitioner Acute Care; Visit Provider Family Medicine
DX: I81 Portal vein thrombosis (principal); R79.1 Abnormal coagulation profile; J43.2 Centrilobular emphysema; I10 Essential (primary) hypertension; F17.210 Nicotine dependence, cigarettes, uncomplicated; R11.0 Nausea; K59.00 Constipation, unspecified; R74.01 Elevation of levels of liver transaminase levels; C22.8 Malignant neoplasm of liver, primary, unspecified as to type; C78.01 Secondary malignant neoplasm of right lung; C78.02 Secondary malignant neoplasm of left lung; C78.6 Secondary malignant neoplasm of retroperitoneum and peritoneum; R18.8 Other ascites; F10.21 Alcohol dependence, in remission; I49.1 Atrial premature depolarization
CPT/HCPCS: 00123; 36415; 74177; 76775; 80053; 83690; 86704; 86709; 86803; 87340; 87522; 94640; 96372; 96374; 99285; 71260; 81003; 81015; 82140; 85025; 85610; 85730; 86705; 94664; 99223; 99233; 99239; J0780; J1171; J1650; J1938; J2270; J2470

== ENCOUNTER → 2025-05-18 14:29 | Outpatient (BNVA) | payer MEDICARE, SELFPAY | PROVIDERS: PCP Nurse Practitioner Adult Health; Referring Provider Nurse Practitioner Adult Health; Visit Provider Surgery | DX: C22.0 Liver cell carcinoma (principal); G89.3 Neoplasm related pain (acute) (chronic) | CPT/HCPCS: 99214 ==